=== PATIENT | male | born 1965 | race Caucasian/White ===

== ENCOUNTER 2016-07-22 22:26 | Emergency (ER) | payer MEDICARE ==
[~2016-07-22] VITALS: Ht 182.9 cm; Wt 98.0 kg
[2016-07-22 22:28] VITALS: BP 136/88; PULSE 102; RESP 22; TEMP 98.5; O2SAT 99
[2016-07-22] MEDS ORDERED: SODIUM CHLOR 0.9% 1000 ML INJ 1,000 ML IV SCH (23:13)
[2016-07-22] MEDS ORDERED: HYDROmorphone HCL PF 1 MG/ML VIAL IVS ONE (23:15)
[2016-07-22] MEDS ORDERED: SODIUM CHLOR 0.9% 1000 ML INJ 1,000 ML IV ONE (23:15)
[2016-07-22] MEDS ORDERED: SODIUM CHLORIDE 0.9% FLUSH 5 ML FLUSH IVF PRN (23:15)
[2016-07-22 23:30] VITALS: RESP 16; O2SAT 100
[2016-07-22] MEDS ORDERED: diphenhydrAMINE HCL 50 MG/ML VIAL IV PUSH ONE (23:30)
[2016-07-22] MEDS ORDERED: METOCLOPRAMIDE HCL 10 MG/2 ML VIAL IV PUSH ONE (23:30)
[2016-07-22 23:38] LABS: AUTOMATED NEUTROPHIL # 4.7 TH/MM3 (1.8-7.7); BASOPHIL # 0.1 TH/MM3 (0-0.2); BASOPHIL % 0.7 % (0.0-2.0); EOSINOPHIL % 0.3 % (0.0-4.0); HEMATOCRIT 47.8 % (39.0-51.0); HEMO FLAGS DIFF FINAL; LYMPH % 35.6 % (9.0-44.0); LYMPHOCYTE # 2.9 TH/MM3 (1.0-4.8); MEAN CELL VOLUME 82.8 FL (80.0-100.0); MEAN CORPUSCULAR HEMOGLOBIN 28.1 PG (27.0-34.0); MEAN CORPUSCULAR HGB CONC 33.9 % (32.0-36.0); MONO % 6.3 % (0.0-8.0); NEUT % 57.1 % (16.0-70.0); PLATELET COUNT 284 TH/MM3 (150-450); RED BLOOD COUNT 5.77 MIL/MM3 (4.50-5.90); RED CELL DISTRIBUTION WIDTH 13.1 % (11.6-17.2); WHITE BLOOD COUNT 8.2 TH/MM3 (4.0-11.0)
[2016-07-23 00:06] LABS: ALT (GPT) 111 U/L (12-78); ANION GAP 15 MEQ/L (5-15); AST (GOT) 61 U/L (15-37); BICARBONATE 21.7 MEQ/L (21.0-32.0); BLOOD UREA NITROGEN 20 MG/DL (7-18); CHLORIDE 101 MEQ/L (98-107); GLOMERULAR FILTRATION RATE 50 ML/MIN (>89); POTASSIUM 4.5 MEQ/L (3.5-5.1); SODIUM (NA) 138 MEQ/L (136-145)
[2016-07-23 00:08] LABS: ALKALINE PHOSPHATASE 107 U/L (45-117); TOTAL BILIRUBIN ADULT 2.1 MG/DL (0.2-1.0)
[2016-07-23] MEDS ORDERED: IOHEXOL 350 MG/ML 10 ML VIAL (for RAD DIAG) IV ONE (00:55)
--- NOTE | 2016-07-23 01:06 | RADRPT ---
EXAM DATE/TIME: 07/23/2016 00:52 [place] COMPARISON: No previous studies available for comparison. INDICATIONS : Vomiting and abdomen pain for three days. IV CONTRAST: 70 cc Omnipaque 350 (iohexol) IV ORAL CONTRAST: No oral contrast ingested. RADIATION DOSE: 12.66 CTDIvol (mGy) MEDICAL HISTORY : Gastroparesis. Diabetes mellitus type 2. SURGICAL HISTORY : None. ENCOUNTER: Initial ACUITY: 3 days PAIN SCALE: 4/10 LOCATION: Abdomen TECHNIQUE: Volumetric scanning of the abdomen and pelvis was performed. Using automated exposure control and ad justment of the mA and/or kV according to patient size, radiation dose was kept as low as reasonably achievable to obtain optimal diagnostic quality images. FINDINGS: There is a moderate hiatal hernia and postsurgical changes at the esophagogastric junction. There is fatty infiltration of the liver. Gallbladder, kidneys, spleen, pancreas, bilateral adrenal glands are normal in appearance. Urinary bladder and prostate are unremarkable. Sigmoid diverticulosis without diverticulitis. No obstruction, free fluid, or free air. No adenopathy or aneurysm. Mild degenerative changes of the lumbar spine. 3.7 mm right middle lobe pulmonary nodule. CONCLUSION: 1. Hepatic steatosis. 2. Hiatal hernia. 3. No evidence for obstruction or acute inflammatory change. 4. Noncalcified right middle lobe pulmonary nodule measuring 3.7 mm. 5. Sterling Lujan MD on July 23, 2016 at 1:02 Board Certified Radiologist. This report was verified electronically.
[2016-07-23] MEDS ORDERED: SODIUM CHLOR 0.9% 1000 ML INJ 1,000 ML IV ONE ×2 (01:30→02:30)
[2016-07-23] MEDS ORDERED: HYDROmorphone HCL PF 1 MG/ML VIAL IV PUSH ONE (01:30)
[2016-07-23] MEDS ORDERED: PROMETHAZINE INJ 25 MG/ML VIAL IM ONE (01:30)
[2016-07-23] MEDS ORDERED: PROM25TA5 PO (02:14)
--- NOTE | 2016-07-23 02:15 | PD ---
HPI Chief Complaint: Abdominal Pain Time Seen by Provider: 22:58 Travel History International Travel<30 days: No Contact w/Intl Traveler<30days: No Traveled to known affect area: No History of Present Illness HPI 51-year-old male arrives to the ER complaining of abdominal pain for about 3 days. He has history of gastroparesis. He states he has borderline diabetes. He has been suffering with it for about 12 years or so. He reports some nausea for the last few days. He reports severe pain for the last 2 days. His most recent episode was at least 2 years previous. He's had no fever. Severity moderate. PFSH Past Medical History Diabetes: Yes ("semi") Patient Takes Glucophage: No Diminished Hearing: No Gastrointestinal Disorders: Yes (gastroporesis) Tetanus Vaccination: Unknown Influenza Vaccination: No Past Surgical History Abdominal Surgery: Yes (ex lap 1983) Other Surgery: Yes (hiatal hernia wrap 2005) Social History Alcohol Use: Yes (occ) Tobacco Use: No Substance Use: No Allergies-Medications (Allergen,Severity, Reaction): Coded Allergies: Metformin (Verified Allergy, Mild, HIVES, 07/22/16) Reported Meds & Prescriptions Reported Meds & Active Scripts Active Phenergan (Promethazine HCl) 25 Mg Tab 25 Mg PO Q6H PRN Review of Systems Except as stated in HPI: all other systems reviewed are Neg Physical Exam Narrative GENERAL: 51-year-old male pleasant well-nourished well-developed mild to moderate distress secondary to pain and/or anxiety SKIN: Warm and dry. HEAD: Atraumatic. Normocephalic. EYES: Pupils equal and round. No scleral icterus. No injection or drainage. ENT: No nasal bleeding or discharge. Mucous membranes pink and moist. NECK: Trachea midline. No JVD. CARDIOVASCULAR: Regular rate and rhythm. No murmur appreciated. RESPIRATORY: No accessory muscle use. Clear to auscultation. Breath sounds equal bilaterally. GASTROINTESTINAL: Abdomen soft, non-tender, nondistended. Hepatic and splenic margins not palpable. MUSCULOSKELETAL: No obvious deformities. No clubbing. No cyanosis. No edema. NEUROLOGICAL: Awake and alert. No obvious cranial nerve deficits. Motor grossly within normal limits. Normal speech. PSYCHIATRIC: Appropriate mood and affect; insight and judgment normal. Data Data Last Documented VS Vital Signs Date Time Temp Pulse Resp B/P Pulse Ox O2 Delivery O2 Flow Rate FiO2 07/23/16 02:26 110 16 140/66 100 Room Air 07/22/16 22:28 98.5 Orders Complete Blood Count With Diff (07/22/16 23:13) Comprehensive Metabolic Panel (07/22/16 23:13) Lactic Acid (07/22/16 23:13) Iv Access Insert/Monitor (07/22/16 23:13) Ecg Monitoring (07/22/16 23:13) Oximetry (07/22/16 23:13) Sodium Chlor 0.9% 1000 Ml Inj (Ns 1000 M (07/22/16 23:13) Sodium Chloride 0.9% Flush (Ns Flush) (07/22/16 23:15) Hydromorphone Pf Inj (Dilaudid Pf Inj) (07/22/16 23:15) Sodium Chlor 0.9% 1000 Ml Inj (Ns 1000 M (07/22/16 23:15) Metoclopramide Inj (Reglan Inj) (07/22/16 23:30) Diphenhydramine Inj (Benadryl Inj) (07/22/16 23:30) Ct Abd/Pel W Iv Contrast(Rout) (07/23/16 00:10) Lipase (07/22/16 23:20) Iohexol 350 Inj (Omnipaque 350 Inj) (07/23/16 00:55) Hydromorphone Pf Inj (Dilaudid Pf Inj) (07/23/16 01:30) Sodium Chlor 0.9% 1000 Ml Inj (Ns 1000 M (07/23/16 01:30) Promethazine Inj (Phenergan Inj) (07/23/16 01:30) Lactic Acid (07/23/16 01:20) Sodium Chlor 0.9% 1000 Ml Inj (Ns 1000 M (07/23/16 02:30) Labs Laboratory Tests Test 07/22/16 07/23/16 23:20 01:30 White Blood Count 8.2 TH/MM3 Red Blood Count 5.77 MIL/MM3 Hemoglobin 16.2 GM/DL Hematocrit 47.8 % Mean Corpuscular Volume 82.8 FL Mean Corpuscular Hemoglobin 28.1 PG Mean Corpuscular Hemoglobin 33.9 % Concent Red Cell Distribution Width 13.1 % Platelet Count 284 TH/MM3 Mean Platelet Volume 8.8 FL Neutrophils (%) (Auto) 57.1 % Lymphocytes (%) (Auto) 35.6 % Monocytes (%) (Auto) 6.3 % Eosinophils (%) (Auto) 0.3 % Basophils (%) (Auto) 0.7 % Neutrophils # (Auto) 4.7 TH/MM3 Lymphocytes # (Auto) 2.9 TH/MM3 Monocytes # (Auto) 0.5 TH/MM3 Eosinophils # (Auto) 0.0 TH/MM3 Basophils # (Auto) 0.1 TH/MM3 CBC Comment DIFF FINAL Differential Comment Sodium Level 138 MEQ/L Potassium Level 4.5 MEQ/L Chloride Level 101 MEQ/L Carbon Dioxide Level 21.7 MEQ/L Anion Gap 15 MEQ/L Blood Urea Nitrogen 20 MG/DL Creatinine 1.47 MG/DL Estimat Glomerular Filtration 50 ML/MIN Rate Random Glucose 336 MG/DL Lactic Acid Level 3.5 mmol/L 1.4 mmol/L Calcium Level 9.9 MG/DL Total Bilirubin 2.1 MG/DL Aspartate Amino Transf 61 U/L (AST/SGOT) Alanine Aminotransferase 111 U/L (ALT/SGPT) Alkaline Phosphatase 107 U/L Total Protein 8.7 GM/DL Albumin 4.9 GM/DL Lipase 167 U/L [facility] Medical Decision Making Medical Screen Exam Complete: Yes Emergency Medical Condition: Yes Medical Record Reviewed: Yes Differential Diagnosis Constipation, Gastritis, Acute Cholecystitis, Biliary Colic, Pancreatitis, CHANDRA , Hepatitis, Bowel Obstruction, Cystitis, Mesenteric Ischemia, AAA, Appendicitis , Renal Stone/Hydronephrosis, GERD, perforated viscous Narrative Course CBC & BMP Diagram 07/22/16 23:20 Bilirubin 2.1 First lactic acid 3.5 Second lactic acid 1.4 AST 61 ALT 111 Lipase was 167 Last 24 hours Impressions Abdomen/Pelvis CT 07/23/16 0010 Signed Impressions: Service Date/Time: Saturday, July 23, 2016 00:52 - CONCLUSION: 1. Hepatic steatosis. 2. Hiatal hernia. 3. No evidence for obstruction or acute inflammatory change. 4. Noncalcified right middle lobe pulmonary nodule measuring 3.7 mm. 5. Sterling Lujan MD Patient reassessed after CT report that it was somewhat painful to do the procedure. Second dose of hydromorphone was ordered. Fortunately CT is reassuring. The first elevated lactic acid is considered most likely secondary to tourniquet time. Patient was advised of the LFT abnormalities and agrees to follow up with his primary care provider in [place] or GI referral here. He was also made aware of middle lobe nodule and understands the necessity of repeat imaging in 6 months. He is agreeable plan that includes discharge with Phenergan. Return precautions discussed. He is aware he can return anytime and that we would be happy to treat him. Diagnosis Primary Impression: Gastroparesis Additional Impressions: Abdominal pain Qualified Code: R10.9 - Abdominal pain, unspecified location Abnormal LFTs Referrals: Waldo Baker MD 2 days Primary Care Physician 2 days Additional Instructions: You have a choice when it comes to health care, and we are glad that you chose [facility]. Hopefully, we have met your expectations on today's visit. You are welcome to return to [facility] at any time, as we are committed to meeting the health care needs of our community. Med/Other Pt SpecificInfo: Prescription(s) given Scripts Promethazine (Phenergan)25 Mg Tab25 Mg PO Q6H PRN (Nausea/Vomiting) #20 TAB Ref 0 Prov:Philipp Barnes MD 07/23/16 Disposition: 01 DISCHARGE HOME Condition: Stable Philipp Barnes MD Jul 23, 2016 02:15
[2016-07-23 02:26] VITALS: BP 140/66; PULSE 110; RESP 16; O2SAT 100
[2016-07-23 02:57] VITALS: BP 141/56; TEMP 98.9
== END 2016-07-23 03:03 | disposition home or self-care (01) ==
LOC: NEPC 22:26
DX: R10.9 Unspecified abdominal pain (principal); K31.84 Gastroparesis; R94.5 Abnormal results of liver function studies; E11.9 Type 2 diabetes mellitus without complications; R11.0 Nausea
CPT/HCPCS: 74177; 80053; 83605; 83690; 85025; 96361; 96374; 96375; 96376; 99284; J1170; J1200; J2550; J2765; J7030; Q9967

== ENCOUNTER 2016-07-25 02:34 | Emergency (ER) | payer MEDICARE ==
[~2016-07-25] VITALS: Ht 182.9 cm; Wt 98.0 kg
[~2016-07-25 02:34] MED LIST: PROM25TA5 PO
[2016-07-25 02:36] VITALS: BP 187/92; PULSE 93; RESP 24; TEMP 98.9; O2SAT 100
[2016-07-25] MEDS ORDERED: DICYCLOMINE HCL 20 MG/2 ML VIAL IM ONE (03:00)
[2016-07-25] MEDS ORDERED: SODIUM CHLOR 0.9% 1000 ML INJ 1,000 ML IV ONE (03:00)
[2016-07-25] MEDS ORDERED: diphenhydrAMINE HCL 50 MG/ML VIAL IV PUSH ONE (03:00)
[2016-07-25] MEDS ORDERED: PROCHLORPERAZINE INJ 10 MG/2 ML VIAL IVS ONE (03:00)
--- NOTE | 2016-07-25 03:00 | PD ---
HPI Chief Complaint: GI Complaint Time Seen by Provider: 02:47 Travel History International Travel<30 days: No Contact w/Intl Traveler<30days: No Traveled to known affect area: No History of Present Illness HPI Is a 51-year-old man who presents emergency department for recurrent epigastric abdominal pain with nausea and vomiting. He is a history of the same nature of his to gastroparesis, with flares once a year or so. He's had these symptoms for the past 5 days. He was recently seen in the emergency department we had laboratory studies done and CT imaging. CT imaging was remarkable for hepatic steatosis, and a hiatal hernia. Labs are remarkable for glucose of 336, mildly elevated BUN and creatinine, elevated AST and ALT. Lipase is normal. He's not been able to get his medications filled. He states he can't afford to be on diabetes medicine. He states is allergic to metformin. States she has ongoing symptoms. History Past Medical History Narrative Medical Diabetes Chronic back pain Hiatal hernia Social History Alcohol Use: Yes (occ) Tobacco Use: No Allergies-Medications (Allergen,Severity, Reaction): Coded Allergies: Metformin (Verified Allergy, Mild, HIVES, 07/25/16) Reported Meds & Prescriptions Reported Meds & Active Scripts Active Phenergan (Promethazine HCl) 25 Mg Tab 25 Mg PO Q6H PRN Review of Systems Except as stated in HPI: all other systems reviewed are Neg Physical Exam Narrative GENERAL: 51-year-old man, retching. SKIN: Warm and dry. NECK: Trachea midline. No JVD. CARDIOVASCULAR: Regular rate and rhythm. No murmur appreciated. RESPIRATORY: No accessory muscle use. Clear to auscultation. Breath sounds equal bilaterally. GASTROINTESTINAL: Abdomen flat and soft. Moderate epigastric tenderness and some voluntary guarding. No rebound. MUSCULOSKELETAL: No obvious deformities. No edema. NEUROLOGICAL: Awake and alert. No obvious cranial nerve deficits. Motor grossly within normal limits. Normal speech. PSYCHIATRIC: Appropriate mood and affect; insight and judgment normal. Data Data Last Documented VS Vital Signs Date Time Temp Pulse Resp B/P Pulse Ox O2 Delivery O2 Flow Rate FiO2 07/25/16 03:13 88 18 176/101 98 Room Air 07/25/16 02:36 98.9 Orders Complete Blood Count With Diff (07/25/16 02:52) Comprehensive Metabolic Panel (07/25/16 02:52) Lipase (07/25/16 02:52) Iv Access Insert/Monitor (07/25/16 02:52) Sodium Chlor 0.9% 1000 Ml Inj (Ns 1000 M (07/25/16 03:00) Prochlorperazine Inj (Compazine Inj) (07/25/16 03:00) Diphenhydramine Inj (Benadryl Inj) (07/25/16 03:00) Dicyclomine Inj (Bentyl Inj) (07/25/16 03:00) Labs Laboratory Tests Test 07/25/16 02:55 White Blood Count 9.2 TH/MM3 Red Blood Count 4.96 MIL/MM3 Hemoglobin 13.9 GM/DL Hematocrit 41.2 % Mean Corpuscular Volume 83.0 FL Mean Corpuscular Hemoglobin 28.1 PG Mean Corpuscular Hemoglobin 33.9 % Concent Red Cell Distribution Width 13.0 % Platelet Count 243 TH/MM3 Mean Platelet Volume 8.8 FL Neutrophils (%) (Auto) 79.4 % Lymphocytes (%) (Auto) 16.4 % Monocytes (%) (Auto) 3.9 % Eosinophils (%) (Auto) 0.0 % Basophils (%) (Auto) 0.3 % Neutrophils # (Auto) 7.3 TH/MM3 Lymphocytes # (Auto) 1.5 TH/MM3 Monocytes # (Auto) 0.4 TH/MM3 Eosinophils # (Auto) 0.0 TH/MM3 Basophils # (Auto) 0.0 TH/MM3 CBC Comment DIFF FINAL Differential Comment Sodium Level 142 MEQ/L Potassium Level 3.8 MEQ/L Chloride Level 105 MEQ/L Carbon Dioxide Level 21.2 MEQ/L Anion Gap 16 MEQ/L Blood Urea Nitrogen 27 MG/DL Creatinine 1.21 MG/DL Estimat Glomerular Filtration 63 ML/MIN Rate Random Glucose 317 MG/DL Calcium Level 9.4 MG/DL Total Bilirubin 1.9 MG/DL Aspartate Amino Transf 33 U/L (AST/SGOT) Alanine Aminotransferase 64 U/L (ALT/SGPT) Alkaline Phosphatase 83 U/L Total Protein 7.7 GM/DL Albumin 4.3 GM/DL Lipase 163 U/L [facility] Medical Decision Making Medical Screen Exam Complete: Yes Emergency Medical Condition: Yes Interpretation(s) LABS: CBC unremarkable. CMP remarkable for mildly elevated BUN, glucose 317, total bili 1.9 Lipase normal Differential Diagnosis Gastroparesis, acute recurrent nausea vomiting, GERD, hiatal hernia, hepatobiliary disease, other Narrative Course Medical decision making 50 year-old woman with recurrent nausea vomiting and epigastric pain. Recommend better control of his diabetes. Antiemetics. Outpatient follow-up. Diagnosis Primary Impression: Abdominal pain Qualified Code: R10.13 - Epigastric pain Additional Impressions: Abnormal LFTs Gastroparesis Patient Instructions: General Instructions Additional Instructions: Follow-up with a primary physician for further evaluation treatment of your diabetes, and abdominal pain. Start glipizide 5 mg daily, take before meals. Return to the emergency department for any new or worsening symptoms. Med/Other Pt SpecificInfo: Prescription(s) given Scripts Glipizide 5 Mg Tab5 Mg PO DAILY #30 TAB Ref 0 Take 30 minutes before a meal Prov:Atif Mcknight MD 07/25/16 Disposition: 01 DISCHARGE HOME Condition: Stable Atif Mcknight MD Jul 25, 2016 03:00
[2016-07-25 03:10] LABS: AUTOMATED NEUTROPHIL # 7.3 TH/MM3 (1.8-7.7); BASOPHIL % 0.3 % (0.0-2.0); HEMATOCRIT 41.2 % (39.0-51.0); HEMO FLAGS DIFF FINAL; LYMPH % 16.4 % (9.0-44.0); LYMPHOCYTE # 1.5 TH/MM3 (1.0-4.8); MEAN CORPUSCULAR HEMOGLOBIN 28.1 PG (27.0-34.0); MEAN CORPUSCULAR HGB CONC 33.9 % (32.0-36.0); MONO % 3.9 % (0.0-8.0); NEUT % 79.4 % (16.0-70.0); PLATELET COUNT 243 TH/MM3 (150-450); RED BLOOD COUNT 4.96 MIL/MM3 (4.50-5.90); WHITE BLOOD COUNT 9.2 TH/MM3 (4.0-11.0)
[2016-07-25 03:13] VITALS: BP 176/101; PULSE 88; RESP 18; O2SAT 98
[2016-07-25 03:23] LABS: ALKALINE PHOSPHATASE 83 U/L (45-117); ALT (GPT) 64 U/L (12-78); ANION GAP 16 MEQ/L (5-15); AST (GOT) 33 U/L (15-37); BICARBONATE 21.2 MEQ/L (21.0-32.0); BLOOD UREA NITROGEN 27 MG/DL (7-18); CHLORIDE 105 MEQ/L (98-107); GLOMERULAR FILTRATION RATE 63 ML/MIN (>89); POTASSIUM 3.8 MEQ/L (3.5-5.1); SODIUM (NA) 142 MEQ/L (136-145); TOTAL BILIRUBIN ADULT 1.9 MG/DL (0.2-1.0)
[2016-07-25] MEDS ORDERED: KETOROLAC TROMETHAMINE 30 MG/ML (IVP) VIAL IVP ONE (03:45)
[2016-07-25] MEDS ORDERED: GLIP5TAB8 PO (03:45)
[2016-07-25] MEDS ORDERED: INSULIN ASPART 1,000 UNITS/10 ML VIAL SQ ONE (03:45)
[2016-07-25 04:43] VITALS: BP 170/98
== END 2016-07-25 04:44 | disposition home or self-care (01) ==
LOC: NEPC 02:34
DX: K31.84 Gastroparesis (principal); E11.9 Type 2 diabetes mellitus without complications; R79.89 Other specified abnormal findings of blood chemistry
CPT/HCPCS: 80053; 83690; 85025; 96372; 96374; 96375; 99284; J0500; J0780; J1200; J1815; J1885; J7030